=== PATIENT | male | born 1980 | race African-American/Black ===

== ENCOUNTER → 2016-05-01 | Outpatient (CLI) | payer OTHER ==
--- NOTE | 2016-05-01 08:52 | RAD ---
AP and lateral lumbar spine radiographs 05/01/2016 Clinical history: Low back pain. Lifting injury. AP and two lateral digital radiographs of the lumbar spine were obtained. Minimal S shaped curvature of the thoracolumbar spine is seen. Surgical clips are seen within the right lower quadrant of the abdomen. No fracture or subluxation of the lumbar vertebrae seen. Mild degenerative changes are seen involving the lower lumbar disc spaces consisting of vertebral endplate sclerosis and minimal anterior and posterior vertebral body osteophyte formation along with very mild degenerative changes involving the facet joints. Impression: Mild degenerative changes are seen involving the lower lumbar spine. No acute osseous abnormality is seen.
== END | disposition home or self-care (01) ==
LOC: RAD 08:23
PROVIDERS: ATTEND Internal Medicine
DX: M51.37 Other intervertebral disc degeneration, lumbosacral region (principal); M47.896 Other spondylosis, lumbar region
CPT/HCPCS: 72100